=== PATIENT | male | born 2000 | race Caucasian/White ===

== ENCOUNTER 2023-02-27 09:04 | Outpatient (AMB) | payer OTHER, SELFPAY ==
--- NOTE | 2023-02-27 11:05 | AM.OFFWIN_ITS ---
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 He reports sore throat has worsened over the last few days, and now feels like very sharp pain while swallowing. He states he had a fever on Friday, however no fever since then. Has been using DayQuil with no relief. Denies any known exposure to sick contacts. [facility] Social History Patient Tobacco Use Status: Never used Tobacco Review of Systems Const All systems reviewed & are unremarkable except as noted in HPI and below Physical Exam Vital Signs: Last Vital Signs Temp 98.4 F 02/27/23 11:19 Pulse 79 02/27/23 11:19 BP 118/68 02/27/23 11:19 Pulse Ox 97 02/27/23 11:19 Oxygen Delivery Method Room Air 02/27/23 11:19 BMI result Body Mass Index 22.4 Const General: cooperative and ill appearing acutely Nutritional Appearance: average body habitus HEENT Head: Yes normal to inspection Ears: hearing grossly normal bilaterally General nose exam: Normal external nose present and Nasal discharge present mucoid Face and sinus: Yes normal facial exam Mouth: Normal oral and palatal mucosa present Throat: Yes posterior oropharynx abnormal (Erythematous with exudate) Neck Neck: Yes lymphadenopathy (ant cerv) Resp Effort & Inspection: normal respiratory effort and able to speak in complete sentences Auscultation: clear to auscultation bilaterally Cardio Jugular venous distension: no JVD Palpation: normal PMI Rate: regular rate Rhythm: regular rhythm Skin General skin exam: no rashes or lesions noted Extrem General: Yes no clubbing, cyanosis or edema Psych Appearance: grossly normal Mental Status: mental status grossly normal Results AMB Rapid Strep AMB Rapid Strep Negative Last Edit by Luz Mahoney CMA on 02/27/23 12 :07 Results Reviewed Results Reviewed: Laboratory Last Values Strep Scn Rapid Clinic Negative 02/27/23 12:06 Assessment & Plan Assessment & Plan (1) Pharyngitis: Code(s): J02.9 - Acute pharyngitis, unspecified Qualifiers: Pharyngitis/tonsillitis etiology: unspecified etiology Qualified Code(s): J02.9 - Acute pharyngitis, unspecified Plan: This patient has fairly significant posterior oropharynx erythema and exudate. I am going to treat him for strep pharyngitis. Penicillin prescription sent. Reviewed indications, use, possible side effects of this. Advised she continue to utilize [id number] cold/flu products as needed for symptomatic treatment, he may also benefit from a throat spray/lozenges for his throat discomfort. He can continue to do salt water gargles. If he does not improve with treatment, or if symptoms worsen, he can return to the clinic for further evaluation. Patient verbalizes understanding and agrees to plan. Orders: Orders AMB Rapid Strep Screen Today Z13.9 - Encounter for screening, unspecified Medications: New penicillin V potassium 500 mg PO BID 20 tabs 0RF 10 days J02.0 - Streptococcal pharyngitis Coding Level of Care Code Est Pt Level 3 (98635) Diagnoses Pharyngitis, unspecified etiology J02.9 Pharyngitis/tonsillitis etiology: unspecified etiology
[2023-02-27 11:19] VITALS: BP 118/68; PULSE 79; TEMP 36.9; O2SAT 97; BMI 22.4
== END 2023-02-27 12:18 | disposition home or self-care (01) ==
PROVIDERS: Visit Provider Nurse Practitioner Family
DX: J02.9 Acute pharyngitis, unspecified (principal)
CPT/HCPCS: 87880; 99213

== ENCOUNTER 2025-03-03 09:22 | Outpatient (AMB) | payer OTHER, SELFPAY ==
--- NOTE | 2025-03-03 09:30 | A.OFFPC_ITS ---
Vital Signs 03/03/25 09:35 Height 6 ft 1 in Weight 173 lb BMI 22.8 BP 118/68 Blood Pressure Location Rt brachial Position Sitting Respiration 15 Pulse 75 Pulse Source Pulse Oximeter Temp 98.2 F Temp Source Temporal Artery Scan Pulse Oximetry (%) 97 Oxygen Delivery Method Room Air Intake Visit Reasons: CPE Intake Note: Dharmesh presents in the office today to establish care. Distribution Accounting Clerk Required: No Allergies No Known Allergies Allergy (Verified 03/03/25 09:33) Tobacco use date assessed: 03/03/25 Dental Screening Dental Screen Date: 03/03/25 Did you have a dental visit in the last 12 months?: Yes Did you have a dental problem in the last 6 months where you did not have access to dental care?: No Was dental information given to patient?: Patient has dentist HPI HPI Comments History of Present Illness Details This is a 24-year-old male with no significant past medical history presenting to establish care. He transferred from [facility]. He has no concerns today. Patient reports last Tdap vaccine was 2021. Declines influenza vaccine. ROS: Constitutional: No unexplained weight loss, fever, chills, fatigue or night sweats. Eyes: No vision changes, blurry vision, double vision, eye pain, eye redness, eye discharge. ENT: No hearing loss, sneezing, congestion, runny nose or sore throat. Respiratory: No shortness of breath, cough or sputum production. Cardiovascular: No chest pain, chest pressure or chest discomfort. No palpitations or pedal edema. Gastrointestinal: No anorexia, nausea, vomiting or diarrhea. No abdominal pain or blood in stool. Genitourinary: No dysuria, hematuria, urinary frequency. Neurologic: No headache, dizziness, syncope, unilateral weakness, ataxia, numbness or tingling in the extremities. Musculoskeletal: No muscle pain, back pain, joint pain or swelling. Hematologic/Lymphatics: No bleeding or bruising. No painful lymph nodes. Skin: No rash or itching. Endocrine: No cold or heat intolerance. No polyuria or polydipsia. Psychiatric: No depression or anxiety. No SI/HI. Physical exam: Constitutional: Alert, in no distress. Head: Normocephalic. Eyes: Pupils are equal, round and reactive to light. Extraocular muscles intact. Ear, Nose and Throat: Canals clear. TMs normal. Normal nasal mucosa. No nasal discharge. No oral lesions. Neck: Supple, Full range of motion. No lymphadenopathy. No palpable thyroid masses. Respiratory: Clear to auscultation. Cardiovascular: S1 S2 regular. No murmurs. Gastrointestinal: Abdomen soft, non-tender, non-distended. Normal bowel sounds. No palpable masses. Genitourinary: Linda Atkins present to chimney sweeper. No palpable hernias or testicular masses. Neurologic: No focal neurological deficits. Symmetric patellar reflexes. Moves all extremities spontaneously. Sensation intact bilaterally. Skin: No rashes Musculoskeletal: No gross deformities. Normal range of motion. Extremities: Warm and well perfused. No clubbing, cyanosis or edema. 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 1. Little interest or pleasure in doing things: not at all 2. Feeling down, depressed, or hopeless: not at all 3. Trouble falling or staying asleep, or sleeping too much: not at all 4. Feeling tired or having little energy: not at all 5. Poor appetite or overeating: not at all 6. Feeling bad about yourself - or that you are a failure or have let yourself or your family down: not at all 7. Trouble concentrating on things, such as reading the newspaper or watching television: not at all 8. Moving or speaking so slowly that other people could have noticed. Or the opposite - being so fidgety or restless that you have been moving around a lot more than usual: not at all 9. Thoughts that you would be better off or of hurting yourself in some way: not at all Total score: 0 Depression Screening Interpretation: Negative Depression Screening Done: Yes 10224 - PHQ-9 Billing: Yes Source: Developed by Drs. Kurt Reyes, Belen Davis, Jatinder Barnes and colleagues, with an educational teodora from [employer]. Thrive Questionnaire Date Thrive assessed: 03/03/25 I am a: Patient What is your living situation today?: I have a steady place to live Within the past 12 months, did the food you bought not last and you didn't have the money to get more?: Never true Within the past 12 months, did you worry whether your food would run out before you got money to buy more?: Never true Do you have trouble paying for medicines?: No Do you have trouble getting transportation to medical appointments?: No Do you have trouble paying your heating and electricity bill?: No Do you have trouble taking care of your child, family member or friend?: No Do you have trouble with day-to-day activities such as bathing, preparing meals, shopping, managing finances, etc.?: No Are you currently unemployed and looking for a job?: No Are you interested in more education?: No Please select the resources that you would like help with: None Currently or been in a relationship where the following occur: No concerns reported THRIVE Score: 0 AUDIT C Alcohol Use Questionnaire (AUDIT-C) 1. How often do you have a drink containing alcohol?: 2-4 times a month 2. How many drinks containing alcohol do you have on a typical day when you are drinking?: 3 or 4 3. How often do you have six or more drinks on one occasion?: Less than monthly Total Score: 4 KENYATTA-7 AMB Questionnaire KENYATTA-7 Date KENYATTA - 7 assessed: 03/03/25 Feeling nervous, anxious, or on edge: 0 = Not at all Not being able to stop or control worryin = Not at all Worrying too much about different things: 0 = Not at all Trouble relaxin = Not at all Being so restless that it is hard to sit still: 0 = Not at all Becoming easily annoyed or irritable: 0 = Not at all Feeling afraid as if something awful might happen: 0 = Not at all Total KENYATTA-7 score (0-4 normal; 5-9 mild; 10-14 moderate; 15-21 severe): 0 Source: Developed by Román Aranaet B.W. Ryan, Jatinder Barnes and colleagues, with an educational teodora from [employer]. KENYATTA-7 Assessment Billing KENYATTA-7 Assessment Tool: KENYATTA-7 Assessment 69464 Physical exam (Primary Care) Vital Signs: Last Vital Signs Temp 98.2 F 03/03/25 09:35 Pulse 75 03/03/25 09:35 Resp 15 03/03/25 09:35 BP 118/68 03/03/25 09:35 Pulse Ox 97 03/03/25 09:35 Oxygen Delivery Method Room Air 03/03/25 09:35 BMI result Body Mass Index 22.8 Tobacco/Smoking Status: Tobacco use Status Tobacco use date assessed 03/03/25 03/03/25 09:38 Patient Tobacco Use Status Never used Tobacco 03/03/25 09:35 e-Cigarette/Vaping Use Never Used 03/03/25 09:38 PHQ-9: PHQ-9 Score PHQ-9: Total score 0 03/03/25 09:56 Depression Screening Interpretation: Negative Thrive Assessment: Date of Thrive Assessment Date Thrive assessed 03/03/25 03/03/25 09:32 Currently or been in a relationship where the following occur: No concerns reported Coding Level of Care Code New Pt Prev Care 18-39yr(28677 Diagnoses Routine physical examination Z00.00 Screening for cardiovascular condition Z13.6 Additional Codes KENYATTA-7 Assessment Billing - KENYATTA-7 Assessment Tool: KENYATTA-7 Assessment 03363 ([id number]) PHQ-9 - 13709 - PHQ-9 Billing: Yes ([id number]) Assessment & Plan Assessment & Plan (1) Routine physical examination: Code(s): Z00.00 - Encounter for general adult medical examination without abnormal f indings Category: Medical (2) Screening for cardiovascular condition: Code(s): Z13.6 - Encounter for screening for cardiovascular disorders Category: Medical Plan Patient is seen today for a routine physical. As part of this visit we reviewed the following issues, which are considered and essential part of preventative health in this age group: - Testicular cancer screening, which includes self exam teaching - Blood pressure screening - Cholesterol screening - Counseling of injury prevention including fire prevention, smoke alarms and seat belt usage - Screening for depression - Prevention of and/or testing for infectious diseases-declines screenings - Education about skin cancer - Recommendations about immunizations - Recommendation of an eye exam - Screening for substance abuse Schedule physical in 1 year. Orders: Orders Lipid Panel Today Z00.00 - Encounter for general adult medical examination without abnormal findings, Z13.6 - Encounter for screening for cardiovascular disorders Complete Blood Count no Diff Today Z00.00 - Encounter for general adult medical examination without abnormal findings, Z13.6 - Encounter for screening for cardiovascular disorders Comprehensive Met. Panel Today Z00.00 - Encounter for general adult medical examination without abnormal findings, Z13.6 - Encounter for screening for cardiovascular disorders
[2025-03-03 09:35] VITALS: BP 118/68; PULSE 75; RESP 15; TEMP 36.8; O2SAT 97; BMI 22.8
--- OUTSIDE RECORDS SUMMARY | 2025-03-03 10:45 | XMS_ITS | Clinical Summary ---
Author Organization [facility] Address [address] [place] [phone] Phone Care Team Providers Care Java Spring Developer Name Role Phone Unavailable Primary Care Provider Unavailabl e Allergies No known active allergies Medications ibuprofen 400 MG tablet Take 400 mg by mouth every 6 (six) hours as needed for mild pain. Active Flucelvax Quadrivalent suspension PHARMACY ADMINISTERED 0 Active Active Problems Problem Noted Date Diagnosed Date Atypical migraine 10/07/2017 Overview (08/18/2018): Seen by VALDEZ Waterman on 10/10/17. MRI/MRA ordered to r/o potential vascular lesion. If normal atypical migraine is suspected. Imaging was normal - Triggered by exercise in heat Assessment & Plan (08/18/2018 4:34 PM EDT): Has been doing well since last year. Will watch this summer as the heat of summer seemed to be trigger last year. Assessment & Plan (10/07/2017 6:57 PM EDT): Discussed with mom and Vin. I am glad he recently had a full normal eye exam. I wonder if he is experiencing an aura as sometime he states will develop into a headache. It is interesting that these seem to be triggered after extensive physical activity and seem to be more in the heat. He has been hydrating well which makes dehydration less likely, but still on differential. While I doubt any need for imaging, mom and Dharmesh are understandably concerned. I do not know if a vascular issue could be playing a role. After discussion we decided to ask for Neurology to see him to get their opinion and to determine if any need for imaging. Immunizations Immunization Administration Dates Next Due DTaP 03/18/2005, 2,2000, 001,2000 HPV Vaccine 9 Valent 05/13/2016,12/12/2015,10/05 Hep A, ped/adol 02/12/2017,08/06/2016 Hep B, ped/adol 03/20/2001,2000,2000 Hib (PRP-T) 06/24/2001, 1,2000, 001 IPV 03/18/2005, 2,2000, 001 Influenza 03/24/2006,05/01/2005,03/18/2005 Influenza, injectable, quadrivalent 12/15/2008,0 04/04/2008 MMR 03/19/2004,03/20/2001 Meningococcal B Bexsero 03/31/2017,02/22/2017 Meningococcal Conj (Menactra) MCV4P 08/06/2016,0 04/01/2011 Pneumococcal Conjugate 2000,2000,03/2000 Tdap 04/01/2011 Varicella 04/04/2008,03/20/2001 Family History Medical History Relation Name Comments No Known Problems Father No Known Problems Maternal Grandfather No Known Problems Maternal Grandmother No Known Problems Mother Heart attack Paternal Grandfather No Known Problems Paternal Grandmother Relation Name Status Comments Father Alive Father's Brother Alive Father's Sister Alive Maternal Grandfather Alive Maternal Grandmother Alive Mother Alive Paternal Grandfather Alive Paternal Grandmother Alive Social History Tobacco Use Types Packs/Day Years Used Date Smoking Tobacco: Never Assessed Hunger/Food Answer Date Recorded In the last 12 months, did y ou or your family ever eat less than you felt you should because there wasn't enough money for food? No 08/29/2020 Stable Housing Answer Date Recorded Are you worried that in the next 2 months you may not have stable housing? No 08/29/2020 Transportation Concerns Answer Date Rec orded In the last 12 months, have you or your family ever had to go without healthcare because you didn't have a way to get there? No 08/29/2020 Hazards in Home Answer Date Recorded Think about the place you li ve. Do you have problems with any of the following? Pests (mice or roaches), mold, no/not working smoke detectors, water leaks, no window guards. No 2020 Financing Utilities Answer Date Recorde d In the last 12 months, has t he electric, gas, oil, or water company threatened to shut off your services in your home? No 08/29/2020 Safety at Home Answer Date Recorded Are you or your family worried about feeling saf e in your home? No 08/29/2020 Outside Support Answer Date Recorded Do you feel that you need mo re support from other people or programs to help you care for yourself or your family? No 08/29/2020 Understanding Health Concerns Answer Da te Recorded Do you need help understandi ng your or your child's healthcare needs (diagnosis, medications, plan, etc.)? No 08/29/2020 Financing Health Concerns Answer Date R ecorded In the last 12 months, was t here a time when your child needed to see a doctor or get medications or supplies but could not because of cost? No 08/29/2020 Missing School or Work Answer Date Shahram rded Did you or your child miss s chool or work because of a health problem that could have been avoided? No 08/29/2020 Sex and Gender Information Value Date Recorded Sex Assigned at Not on file Legal Sex Male 6:10 PM EDT Gender Identity Not on file Sexual Orientation Not on file Last Filed Vital Signs Vital Sign Reading Time Taken Comments Blood Pressure 120/76 08/29/2020 1:56 PM EDT Pulse - - Temperature 38.2 C (100.8 F) 10/23/2018 1:47 PM EDT Respiratory Rate - - Oxygen Saturation - - Inhaled Oxygen Concentration - - Weight 66.8 kg (147 lb 3.2 oz) 08/29/2020 1:56 P M EDT Height 184.2 cm (6' 0.5 ) 08/29/2020 1:56 PM EDT Body Mass Index 19.69 08/29/2020 1:56 PM EDT Plan of Treatment Health Maintenance Due Date Last Done Comments DTaP,Tdap,and Td Vaccines (7 - Td or Tdap) 04/01/2021 04/01/2011, 03/18/2005, 06/24/2001, Additional history exists Influenza Vaccines (#1) 2024 01/14/20 21, 12/15/2008, 04/04/2008, Additional history exists COVID-19 Vaccine ( season) 2024 03/21/2021, 07/25/2020, 07/04/2020 Pneumococcal Vaccine Aged Out 2000, 2000, 2000 No longer eligible based on patient's age to complete this topic Hepatitis B Vaccines Completed 03/20/2001, 2000, 2000 HIB Vaccines Completed 06/24/2001, 09/14, 2000, Additional history exists MMR Vaccines Completed 03/19/2004, 03/20/2001 IPV Vaccines Completed 03/18/2005, 06/2001, 2000, Additional history exists Varicella Vaccines Completed 04/04/2008, 03/20/2001 HPV Vaccines Completed 05/13/2016, 11/16, 10/06/2015 Meningococcal Vaccine Completed 08/06/2016, 012 Hepatitis A Vaccines Completed 02/12/2017, 08/07/19 17 Men B Vaccine Completed 03/31/2017, 02/22/2017 [employer] [facility]
--- OUTSIDE RECORDS SUMMARY | 2025-03-03 10:45 | XMS_ITS | Encounter Summary ---
Author Organization [facility] Address [address] [place] [phone] Phone Care Team Providers Care Tomahawk Weapon System Operator Name Role Phone Kurt Boykin MD Primary Care Provider Encounter Details Date Type Department Care Team (Late st Contact Info) Description 08/03/2017 Conversion Encounter [facility] [address] [place] [address] Social History Tobacco Use Types Packs/Day Years Used Date Smoking Tobacco: Never Assessed Sex and Gender Information Value Date Recorded Sex Assigned at Not on file Legal Sex Male 6:10 PM EDT Gender Identity Not on file Sexual Orientation Not on file documented as of this encounter Plan of Treatment Not on file documented as of this encounter Visit Diagnoses Not on filedocumented in this encounter Care Teams Tomahawk Weapon System Operator Relationship Specialty Start Date End Date Kurt Boykin MD [address] [place] [address] PCP - General Pediatrics 08/16/18 01/26/24 documented as of this encounter
== END 2025-03-03 10:06 | disposition home or self-care (01) ==
LOC: HO.HMCFM 09:23
PROVIDERS: PCP Physician Assistant Medical; Visit Provider Physician Assistant Medical
DX: Z00.00 Encounter for general adult medical examination without abnormal findings (principal); Z13.6 Encounter for screening for cardiovascular disorders

== ENCOUNTER → 2025-03-03 09:22 | Outpatient (BNVA) | payer OTHER, SELFPAY | PROVIDERS: Visit Provider Physician Assistant Medical | DX: Z13.31 Encounter for screening for depression (principal); Z13.39 Encounter for screening examination for other mental health and behavioral disorders | CPT/HCPCS: 96127 ==

== ENCOUNTER 2025-03-11 08:28 | Outpatient (REF) | payer OTHER, SELFPAY ==
--- OUTSIDE RECORDS SUMMARY | 2025-03-11 08:31 | XMS_ITS | Encounter Summary ---
Author Organization [facility] Address [address] [place] [phone] Phone Care Team Providers Care Receiving And Processing Supervisor Name Role Phone Kurt Boykin MD Primary Care Provider [phone] Encounter Details Date Type Department Care Team (Late st Contact Info) Description 08/03/2017 Conversion Encounter [facility] [address] [place] [address] Social History Tobacco Use Types Packs/Day Years [...] on filedocumented in this encounter Care Teams Receiving And Processing Supervisor Relationship Specialty Start Date End Date Kurt Boykin MD [address] [place] [address] PCP - General Pediatrics 08/16/18 01/26/24 documented as of this encounter
--- OUTSIDE RECORDS SUMMARY | 2025-03-11 08:31 | XMS_ITS | Clinical Summary ---
Author Organization [facility] Address [address] [place] [phone] Phone Care Team Providers Care Core Manager Name Role Phone Unavailable Primary Care Provider [...] Men B Vaccine Completed 03/31/2017, 02/22/2017 Insurance [place] [facility]
[2025-03-11 11:12] LABS: Hematocrit 43.4 % (42.0-52.0); Hemoglobin 16.2 g/dl (14.0-18.0); Mean Corpuscular HGB Conc 37.3 g/dl (31.0-36.0); Mean Corpuscular Hemoglobin 32.4 pg (27.0-33.0); Mean Corpuscular Volume 86.8 fL (80.0-98.0); NRBC Abs Auto 0.000 X10*3/uL (0.0-0.012); NRBC Pct Auto 0.0 /100WBC (0.0-0.2); Platelet Count 234 X10*3/uL (160-400); Red Blood Count 5.00 X10*6/uL (4.60-5.80); White Blood Count 6.6 X10*3/uL (4.8-10.8)
[2025-03-11 11:23] LABS: Alanine Aminotransferase 55 U/L (0-40); Albumin Level 4.6 g/dL (3.5-5.0); Alkaline Phosphatase 53 U/L (39-117); Anion Gap 9 (12-20); Aspartate Amino Transferase 25 U/L (5-37); Blood Urea Nitrogen 14 mg/dL (9-16); Calcium 9.1 mg/dL (8.4-10.2); Carbon Dioxide 29 mmol/L (22-29); Chloride 108 mmol/L (96-108); Cholesterol 154 mg/dL (<200); Estimated Glomerular Filt Rate > 60; HDL Cholesterol 33 mg/dL (>40); Potassium 4.0 mmol/L (3.3-5.1); Sodium 142 mmol/L (135-145); Total Protein 6.7 g/dL (6.5-8.0); Triglycerides 153 mg/dL (<150)
== END 2025-03-11 08:29 | disposition home or self-care (01) ==
LOC: HO.WFDLDS 08:28
PROVIDERS: Visit Provider Physician Assistant Medical
DX: Z00.00 Encounter for general adult medical examination without abnormal findings (principal); Z13.6 Encounter for screening for cardiovascular disorders
CPT/HCPCS: 36415; 80053; 80061; 85027